=== PATIENT | female | born 1950 | race Caucasian/White ===

== ENCOUNTER 2016-11-02 06:23 | Emergency (ER) | payer OTHER ==
[~2016-11-02] VITALS: Ht 172.7 cm; Wt 83.3 kg
[2016-11-02 07:17] LABS: HEMATOCRIT 42.1 % (36.0-46.0); MCH 29.8 PG (29.0-34.0); MCV 87.7 FL (83-99); PLATELET COUNT 318 K/uL (156-360); RBC DIS.WIDTH-CV 12.6 % (11.8-14.6); RBC DIS.WIDTH-SD 40.5 % (39-53); WHITE BLOOD COUNT 9.7 K/uL (4.1-10.2)
[2016-11-02 07:52] LABS: ANION GAP 11 MEQ/L (2-14); CHLORIDE 107 MEQ/L (99-109); GFR ESTIMATE (CALCULATED) > 59 mL/min/; GLUCOSE 120 mg/dL (70-99); POTASSIUM 4.1 MEQ/L (3.7-5.4); SAMPLE HEMOLYSIS CHECK 0; SAMPLE ICTERIC CHECK 0; SAMPLE LIPEMIA CHECK 0; SODIUM 141 MEQ/L (136-147); UREA NITROGEN (BUN) 12 mg/dL (9-23)
[2016-11-02 08:38] LABS: ADD MIUA? NO; BILIRUBIN NEGATIVE; BLOOD NEGATIVE; COLOR YELLOW ((YELLOW)); GLUCOSE (STRIP) NEGATIVE; KETONES 20; LEUKOCYTES NEGATIVE; NITRITE NEGATIVE; PROTEIN (STRIP) 30; SPECIFIC GRAVITY 1.014 (1.000-1.030); UCUL ADDED? NO; UROBILINOGEN 0.2 MG/DL (0.2-1.0)
[2016-11-02] MEDS ORDERED: FLOMAX0.4 MG PO (09:43)
[2016-11-02] MEDS ORDERED: ZOFRAN4 MG PO (09:43)
[2016-11-02] MEDS ORDERED: PERCOCET 5/31 TABLET PO (09:43)
[2016-11-02] MEDS ORDERED: TORADOL10 MG PO (09:43)
[2016-11-02 11:14] VITALS: BP 134/69
== END 2016-11-02 11:26 | disposition home or self-care (01) ==
LOC: EDBD 06:23 → EME 06:23
PROVIDERS: Emergency Medicine
DX: N20.0 Calculus of kidney (principal); F17.200 Nicotine dependence, unspecified, uncomplicated
CPT/HCPCS: 74176; 80048; 81003; 85027; 99281; 99284; J1885; J2405; J3010; J7030